=== PATIENT | female | born 2000 | race Caucasian/White ===

== ENCOUNTER 2021-05-28 13:31 | Emergency (ER) | payer OTHER ==
[~2021-05-28 13:31] MED LIST: KEFLEX CAP 500500 MG PO; PRENATAL VITAM1 EAC8 PO
[2021-05-28 14:45] LABS: HEMOGLOBIN 13.8 gm/dl (12.3-15.3); RED BLOOD COUNT 5.1 M/UL (4.00-5.10); WHITE BLOOD COUNT 7.6 K/UL (4.5-11.0)
[2021-05-28 15:06] LABS: BUN/CREATININE RATIO 14 (0-10)
[2021-05-28] MEDS ORDERED: ZOFRAN4 MG PO (19:08)
[2021-05-28] MEDS ORDERED: FLAGYL 250 MG250 MG PO (19:08)
[2021-05-28] MEDS ORDERED: CIPRO500 MG PO (19:08)
[2021-05-28] MEDS ORDERED: BENTYL 20MG TAB20 MG PO (19:08)
== END 2021-05-28 19:25 | disposition home or self-care (01) ==
LOC: ER1 13:31
PROVIDERS: Physician Assistant
DX: K81.9 Cholecystitis, unspecified (principal); Z90.89 Acquired absence of other organs; Z88.0 Allergy status to penicillin
CPT/HCPCS: 76705; 80053; 81001; 84703; 85025; 96374; 96375; 99284; J1335; J1885; J2405; Q9967

== ENCOUNTER → 2021-08-25 | Day surgery (SDC) | payer OTHER ==
[~2021-08-25] MED LIST changes: +BENTYL 20MG TAB20 MG PO; +CIPRO500 MG PO; +COLACE100 MG PO; +FLAGYL 250 MG250 MG PO; +HYDROCODON-ACE1 EAC4 PO; +MACROBID 100 M100 MG PO; +SPRINTEC 28 DA1 EACH PO; +TRIAMCINOLONE CREAM TOP; +XYZAL5 MG PO; +ZOFRAN4 MG PO
== END | disposition home or self-care (01) ==
LOC: OR 06:33
DX: K81.1 Chronic cholecystitis (principal); Z20.822 Contact with and (suspected) exposure to COVID-19; Z88.0 Allergy status to penicillin; Z90.49 Acquired absence of other specified parts of digestive tract; Z96.0 Presence of urogenital implants
CPT/HCPCS: 84703; J1100; J1885; J2001; J2250; J2405; J2704; J2710; J3010; J7030; J7120